=== PATIENT | male | born 1990 | race Two or more races ===

== ENCOUNTER 2022-07-19 20:33 | Emergency (ER) | payer MEDICAID ==
[~2022-07-19] VITALS: Ht 167.6 cm; Wt 72.7 kg
[2022-07-19] MEDS ORDERED: CEPH-558 PO (23:21)
[2022-07-19] MEDS ORDERED: DOXY-354 PO (23:21)
[2022-07-19 23:30] VITALS: BP 132/88
[2022-07-19] MEDS ORDERED: DOXYCYCLINE HYCLATE 100 MG TABLET PO ONE (23:30)
[2022-07-19] MEDS ORDERED: CEPHALEXIN MONOHYDRATE 500 MG CAPSULE PO ONE (23:30)
== END 2022-07-20 05:27 | disposition home or self-care (01) ==
LOC: EMS 20:34
DX: L02.426 Furuncle of left lower limb (principal); L02.425 Furuncle of right lower limb; F12.90 Cannabis use, unspecified, uncomplicated
CPT/HCPCS: 99283